=== PATIENT | male | born 1990 | race Caucasian/White ===

== ENCOUNTER 2025-10-04 07:52 | Outpatient (CLI) | payer BC, SELFPAY ==
--- NOTE | ~2025-10-04 | MR_ITS ---
EXAMINATION: MR knee RT wo con DATE: 10/04/2025 08:32 INDICATION: Right knee pain TECHNIQUE: Magnetic resonance imaging (MRI) of the knee was performed without intravenous contrast. Sequences included axial PD-weighted FS FSE, coronal PD- weighted FSE and PD-weighted FS FSE, sagittal PD-weighted FSE, and sagittal T2- weighted FS FSE. COMPARISON: None. FINDINGS: No fracture subluxation or dislocation. 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 Moderate to large joint effusion is present. Mild strandy changes with joint fluid noted. Vertical tear through the mid substance of the anterior horn of the lateral meniscus seen on images 12 and 13 series 7. The posterior horn appears intact. Slight atypical or irregular appearance of the capsular attachment of the anterior horn of the medial meniscus with focal area of hyperintense signal and thickened appearance seen on images 21 through 23 of series 7. The articulating surface of the meniscus anteriorly appears intact. The posterior horn appears intact. Mild hyperintense signal in the ACL with no discrete disruption of ACL fibers. The PCL appears intact. Mild capsular thickening appears to be present posteriorly. The proximal attachment of the lateral collateral ligamentous complex appears somewhat thickened on image 15 series 5. The MCL appears intact. Extra articular soft tissues appear intact; there is chronic appearing fragmentation at the tibial attachment of the infrapatellar tendon. IMPRESSION: 1. Lateral meniscus tear involving the anterior horn. 2. Atypical appearance of the capsular attachment of the anterior horn of the medial meniscus may be associated with gouty inflammatory changes. Capsular injury or tear in this location may be present. 3. Moderate size complex probably chronic joint effusion with capsular thickening likely associated with gouty disease. Correlate clinically to exclude infection or septic joint. Reviewed, dictated and finalized at location [facility] IMPRESSION: 1. Lateral meniscus tear involving the anterior horn. 2. Atypical appearance of the capsular attachment of the anterior horn of the m edial meniscus may be associated with gouty inflammatory changes. Capsular inju ry or tear in this location may be present. 3. Moderate size complex probably chronic joint effusion with capsular thickeni ng likely associated with gouty disease. Correlate clinically to exclude infect ion or septic joint.
== END 2025-10-04 07:53 | disposition home or self-care (01) ==
LOC: MICIMG 07:53
PROVIDERS: PCP Family Medicine; Visit Provider Family Medicine
DX: S83.281A Other tear of lateral meniscus, current injury, right knee, initial encounter (principal); X58.XXXA Exposure to other specified factors, initial encounter; M25.561 Pain in right knee
CPT/HCPCS: 73721